=== PATIENT | male | born 1975 | race Caucasian/White ===

== ENCOUNTER 2016-11-16 19:18 | Emergency (ER) | payer OTHER ==
[~2016-11-16 19:18] MED LIST: KLONOPIN; LORTAB 5-325 M1 EACH PO; NEURONTIN; SINGULAIR; VICODIN; [UNRECOGNIZED DRUG - OTHER]
== END 2016-11-16 19:30 | disposition left against medical advice (07) ==
LOC: CED 19:18
DX: G89.18 Other acute postprocedural pain (principal); R10.30 Lower abdominal pain, unspecified; F41.9 Anxiety disorder, unspecified; F17.210 Nicotine dependence, cigarettes, uncomplicated; Z98.52 Vasectomy status; Z79.01 Long term (current) use of anticoagulants
CPT/HCPCS: 99283; J0360

== ENCOUNTER → 2017-03-16 | Outpatient (CLI) | payer OTHER ==
[2017-03-16 16:17] LABS: BUN/CREATININE RATIO 4.54; CALCIUM SERUM 8.6 mg/dL (8.4-10.2); CREATININE SERUM 1.1 mg/dL (0.6-1.4); GLOM FILT RATE Estimated 81.8 mL/min (>60); POTASSIUM 3.9 mmol/L (3.5-5.1)
== END | disposition home or self-care (01) ==
LOC: CLAB 13:43
PROVIDERS: Surgery
DX: I70.229 Atherosclerosis of native arteries of extremities with rest pain, unspecified extremity (principal)
CPT/HCPCS: 36415; 80048